=== PATIENT | female | born 1945 | race African-American/Black ===

== ENCOUNTER 2018-10-10 10:15 | Emergency (ER) | payer OTHER ==
--- NOTE | 2018-10-10 10:28 | EDPHY ---
H & P Time Seen by Provider: 10/10/18 10:22 HPI/ROS: CHIEF COMPLAINT: Syncope or near-syncope HISTORY OF PRESENT ILLNESS: Patient was at work standing talking to a friend at around 9:30 a.m. When she felt weak and dizzy and hot, she drank about 16 oz of water and her client had her sit in a chair. She then had a sensation like she was going to pass out and when EMS arrived they apparently could not find radial pulse or take a blood pressure that was palpable. They eventually did get 96/50 BP. Currently the patient feels a little bit tired but is back to normal. She did not have chest pain shortness of breath. She had a mild headache in the ambulance but was not present at the time of her symptoms and is gone now. REVIEW OF SYSTEMS: Eye: no change in vision ENT: no sore throat Cardiac: HPI Pulmonary: no cough or SOB Abdomen: no vomiting, diarrhea, abdominal pain Musculoskeletal: no back pain Skin: no rash Neuro: HPI Constitutional: no fever : no urinary symptoms A comprehensive 10 point review of systems is otherwise negative aside from elements mentioned in the history of present illness. PAST MEDICAL HISTORY: Hypertension and thyroid Social history: [place] patient General Appearance: Alert and conversant, cooperative. Eyes: No scleral icterus. ENT, Mouth: Normal mucous membranes. No tongue laceration or abrasion. Respiratory: Normal respiratory effort, breath sounds equal, lungs are clear to auscultation. Cardiovascular: Regular rate and rhythm. Gastrointestinal: Abdomen is soft and non tender. Neurological: Alert, face symmetric, normal motor and sensory in extremities. 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 Skin: Warm and dry, no rashes. Musculoskeletal: No peripheral edema. Psychiatric: Not agitated. Emergency Department course/MDM: EKG shows sinus rhythm with PVC and LVH with inferior Q-waves. Differential diagnosis considered for syncope including but not limited to vasovagal syncope, arrhythmia, dehydration, and blood loss. However with severe hypotension as both her client as well as EMS unable to obtain blood pressure, severity of illness as described by EMS, abnormal EKG with PVC and inferior Q-waves, will admit for telemetry monitoring. Appears stable at this time. CBC chemistry troponin. Discussion with [facility] at 1123, Dr. Haines. 1141: admit to [facility]. 1149: Case discussed with the [facility] physician Dr. Feldman. The accepting physician is Dr. Acevedo. Risks, benefits, and alternatives discussed with the patient and consented. The patient will be transferred to [facility] via [facility] because she is a [place] patient, in stable condition. This is a patient requested transfer. Smoking Status: Never smoked Constitutional: Initial Vital Signs Temperature (C) 36.3 C 10/10/18 10:19 Heart Rate 75 10/10/18 10:19 Respiratory Rate 16 10/10/18 10:19 Blood Pressure 176/101 H 10/10/18 10:19 O2 Sat (%) 99 10/10/18 10:19 O2 Delivery Mode Room Air Allergies/Adverse Reactions: No Known Allergies Allergy (Unverified 10/10/18 10:28) Home Medications: Medication Instructions Recorded Levothyroxine 10/10/18 Norvasc 5 mg (*) 10/10/18 Medical Decision Making - Diagnostics EKG Interpretation: 12-lead EKG interpreted by me; official reading is in computer system. My interpretation is sinus rhythm with PVC, LVH. - Data Points Laboratory Results: Laboratory Results 10/10/18 10:30 10/10/18 10:30 10/10/18 10/10/18 10/10/18 10:30 10:30 10:22 WBC 5.65 10^3/uL 10^3/uL (3.80-9.50) RBC 4.95 10^6/uL 10^6/uL (4.18-5.33) Hgb 13.8 g/dL g/dL (12.6-16.3) Hct 42.0 % % (38.0-47.0) MCV 84.8 fL fL (81.5-99.8) MCH 27.9 pg pg (27.9-34.1) MCHC 32.9 g/dL g/dL (32.4-36.7) RDW 15.8 % H % (11.5-15.2) Plt Count 265 10^3/uL 10^3/uL (150-400) MPV 11.8 fL H fL (8.7-11.7) Neut % (Auto) 23.8 % L % (39.3-74.2) Lymph % (Auto) 63.7 % H % (15.0-45.0) Cherry % (Auto) 8.5 % % (4.5-13.0) Eos % (Auto) 3.5 % % (0.6-7.6) Baso % (Auto) 0.5 % % (0.3-1.7) Nucleat RBC Rel Count 0.0 % % (0.0-0.2) Absolute Neuts (auto) 1.34 10^3/uL L 10^3/uL (1.70-6.50) Absolute Lymphs (auto) 3.60 10^3/uL H 10^3/uL (1.00-3.00) Absolute Monos (auto) 0.48 10^3/uL 10^3/uL (0.30-0.80) Absolute Eos (auto) 0.20 10^3/uL 10^3/uL (0.03-0.40) Absolute Basos (auto) 0.03 10^3/uL 10^3/uL (0.02-0.10) Absolute Nucleated RBC 0.00 10^3/uL 10^3/uL (0-0.01) Immature Gran % 0.0 % % (0.0-1.1) Immature Gran # 0.00 10^3/uL 10^3/uL (0.00-0.10) Sodium 139 mEq/L mEq/L (135-145) Potassium 3.8 mEq/L mEq/L (3.5-5.2) Chloride 104 mEq/L mEq/L (97-110) Carbon Dioxide 28 mEq/l mEq/l (22-31) Anion Gap 7 mEq/L mEq/L (6-14) BUN 15 mg/dL mg/dL (7-23) Creatinine 1.2 mg/dL H mg/dL (0.6-1.0) Estimated GFR 44 Glucose 120 mg/dL H mg/dL (70-100) Calcium 10.1 mg/dL mg/dL (8.5-10.4) POC Troponin I 0.01 ng/mL ng/mL (0.00-0.08) Point of Care Test Results: Chemistry 10/10/18 10:22 POC Troponin I 0.01 ng/mL ng/mL (0.00-0.08) Departure - Departure Disposition: Acute Care Hospital [facility] Clinical Impression: Near syncope Condition: Good Referrals: Patient,NotPresent [Unknown] - As per Instructions
[2018-10-10 10:56] LABS: PLATELET COUNT 265 10^3/uL (150-400)
--- NOTE | 2018-10-10 11:19 | CPEKG ---
Test Reason : OPEN Blood Pressure : / mmHG Vent. Rate : 069 BPM Atrial Rate : 070 BPM P-R Int : 133 ms QRS Dur : 095 ms QT Int : 418 ms P-R-T Axes : 054 -26 012 degrees QTc Int : 448 ms Sinus rhythm Ventricular premature complex Probable left ventricular hypertrophy Inferior infarct, old Confirmed by Lin Weathers ([id number]) on 10/10/2018 11:19:51 AM Referred By: LIN WEATHERS Confirmed By:Lin Weathers
[2018-10-10 12:59] VITALS: BP 158/95
== END 2018-10-10 13:07 | disposition short-term general hospital (02) ==
LOC: EDUNIT#
DX: R55 Syncope and collapse (principal); I10 Essential (primary) hypertension
CPT/HCPCS: 84484-ER